=== PATIENT | male | born 1940 | race Caucasian/White ===

== ENCOUNTER 2018-11-08 09:42 | Inpatient (IN) | payer OTHER ==
[2018-11-08 10:13] LABS: ADD MAN DIFF? NO
[2018-11-08 10:14] LABS: BASOPHILS % 0.5 % (0.0-2.0); EOSINOPHILS # 0.1 10^3/ul (0.0-0.5); EOSINOPHILS % 0.9 % (0.0-7.0); HEMATOCRIT 36.2 % (42.0-52.0); HEMOGLOBIN 12.2 g/dl (14.0-18.0); LYMPHOCYTES # 2.4 10^3/ul (0.8-2.9); MEAN CORPUSCULAR HEMOGLOBIN 30.3 pg (29.0-33.0); MEAN CORPUSCULAR HGB CONC 33.7 g/dl (32.0-37.0); MEAN PLATELET VOLUME 10.7 fl (7.4-10.4); MONOCYTE # 0.7 10^3/ul (0.3-0.9); MONOCYTES % 7.7 % (0.0-11.0); NEUTROPHIL # 5.6 10^3/ul (1.6-7.5); NEUTROPHILS % 63.3 % (39.0-77.0); PLATELET COUNT 179 10^3/UL (140-415); RED BLOOD COUNT 4.02 10^6/ul (4.70-6.10); RED CELL DISTRIBUTION WIDTH 13.6 % (11.5-14.5)
[2018-11-08 10:14] LABS: WHITE BLOOD COUNT 8.8 10^3/ul (4.8-10.8)
[2018-11-08] MEDS: IPRATROPIUM (NEB) 0.5 MG/2.5 ML AMP NEB (10:14)
[2018-11-08] MEDS: ALBUTEROL 0.083% (NEB) 2.5 MG/3 ML AMP NEB (10:14)
[2018-11-08 10:34] LABS: ALANINE AMINOTRANSFERASE 14 IU/L (13-69); ALKALINE PHOSPHATASE 51 IU/L (42-121); ANION GAP 13 (5-13); ASPARTATE AMINO TRANSFERASE 15 IU/L (15-46); BILIRUBIN,INDIRECT 0.2 mg/dl (0-1.1); BILIRUBIN,TOTAL 0.2 mg/dl (0.2-1.3); BLOOD UREA NITROGEN 14 mg/dl (7-20); CALCIUM 8.3 mg/dl (8.4-10.2); CARBON DIOXIDE 28 mmol/L (21-31); CHLORIDE 101 mmol/L (97-110); CREATININE 1.05 mg/dl (0.61-1.24); GLUCOSE 188 mg/dl (70-220); LIPASE 26 U/L (23-300); POTASSIUM 3.5 mmol/L (3.5-5.1); SODIUM 142 mmol/L (135-144)
[2018-11-08 10:35] LABS: ALBUMIN 3.3 g/dl (3.3-4.9); ALBUMIN/GLOBULIN RATIO 1.13; CREATINE KINASE 22 IU/L (23-200); TOTAL PROTEIN 6.2 g/dl (6.1-8.1)
[2018-11-08 10:47] LABS: B-TYPE NATRIURETIC PEPTIDE 1260 PG/ML (0-450); CK INDEX 2.1; CK-MB 0.47 ng/ml (0.0-2.4); TROPONIN-I 0.013 ng/ml (0.000-0.120)
[2018-11-08] MEDS: ONDANSETRON 4 MG INJ IV (11:04)
[2018-11-08] MEDS: GLUCAGON 1 MG INJ IV (11:11)
[2018-11-08 11:14] LABS: INR 0.99; PARTIAL THROMBOPLASTIN TIME 31.9 Sec (23.0-35.0); PROTIME 13.2 Sec (11.9-14.9)
[2018-11-08] MEDS ORDERED: NICARDipine HCL 30 MG CAPSULE (11:34)
[2018-11-08] MEDS: NICARDipine HCL 30 MG CAPSULE PO (11:50)
[2018-11-08] MEDS ORDERED: ACETAMINOPHEN 325 MG TAB PO ×2 (14:30→15:30)
[2018-11-08] MEDS ORDERED: ONDANSETRON 4 MG INJ IV (14:30)
[2018-11-08] MEDS ORDERED: NACL 0.9% 3 ML SYG IV (15:30)
[2018-11-08] MEDS ORDERED: GLUCOSE GEL 15 GRAM TUBE PO ×2 (16:30)
[2018-11-08] MEDS ORDERED: GLUCOSE GEL 15 GRAM TUBE BUCCAL (16:30)
[2018-11-08] MEDS ORDERED: DEXTROSE 50% 50 ML SYRINGE IV ×2 (16:30)
[2018-11-08] MEDS ORDERED: GLUCAGON 1 MG INJ IM (16:30)
[2018-11-08 16:57] LABS: TROPONIN-I < 0.012 ng/ml (0.000-0.120)
[2018-11-08] MEDS: INSULIN ASPART [NOVOLOG] 3 ML PEN SC ×2 (18:00→21:00)
[2018-11-08] MEDS: hydrALAzine 20 MG INJ IV (21:03)
[2018-11-09] MEDS: ACCU-CHEK XX (02:00)
[2018-11-09 05:25] LABS: ADD MAN DIFF? NO
[2018-11-09 05:30] LABS: WHITE BLOOD COUNT 8.4 10^3/ul (4.8-10.8)
[2018-11-09 05:30] LABS: BASOPHILS % 0.5 % (0.0-2.0); EOSINOPHILS # 0.1 10^3/ul (0.0-0.5); EOSINOPHILS % 1.1 % (0.0-7.0); HEMATOCRIT 37.2 % (42.0-52.0); HEMOGLOBIN 12.5 g/dl (14.0-18.0); LYMPHOCYTES # 2.1 10^3/ul (0.8-2.9); LYMPHOCYTES % 24.7 % (15.0-51.0); MEAN CORPUSCULAR HEMOGLOBIN 30.3 pg (29.0-33.0); MEAN CORPUSCULAR HGB CONC 33.6 g/dl (32.0-37.0); MEAN CORPUSCULAR VOLUME 90.1 fl (82.0-101.0); MEAN PLATELET VOLUME 11.2 fl (7.4-10.4); MONOCYTE # 0.7 10^3/ul (0.3-0.9); MONOCYTES % 7.8 % (0.0-11.0); NEUTROPHIL # 5.5 10^3/ul (1.6-7.5); NEUTROPHILS % 65.3 % (39.0-77.0); PLATELET COUNT 186 10^3/UL (140-415); RED BLOOD COUNT 4.13 10^6/ul (4.70-6.10)
[2018-11-09 06:01] LABS: ALANINE AMINOTRANSFERASE 16 IU/L (13-69); ALBUMIN/GLOBULIN RATIO 1.11; ALKALINE PHOSPHATASE 49 IU/L (42-121); ANION GAP 8 (5-13); ASPARTATE AMINO TRANSFERASE 12 IU/L (15-46); BILIRUBIN,INDIRECT 0.2 mg/dl (0-1.1); BILIRUBIN,TOTAL 0.2 mg/dl (0.2-1.3); BLOOD UREA NITROGEN 15 mg/dl (7-20); CALCIUM 8.7 mg/dl (8.4-10.2); CARBON DIOXIDE 31 mmol/L (21-31); CHLORIDE 106 mmol/L (97-110); CREATININE 1.06 mg/dl (0.61-1.24); GLUCOSE 119 mg/dl (70-220); MAGNESIUM 2.2 mg/dl (1.7-2.5); PHOSPHORUS 4.6 mg/dl (2.5-4.9); POTASSIUM 3.8 mmol/L (3.5-5.1); SODIUM 145 mmol/L (135-144); TOTAL PROTEIN 5.7 g/dl (6.1-8.1)
[2018-11-09 06:07] LABS: TROPONIN-I 0.021 ng/ml (0.000-0.120)
[2018-11-09] MEDS: INSULIN ASPART [NOVOLOG] 3 ML PEN SC ×4 (07:57→21:00)
[2018-11-09] MEDS: CLOPIDOGREL 75 MG TAB PO (08:49)
[2018-11-09] MEDS: HYDROCHLOROTHIAZIDE 12.5 MG CAP PO (08:49)
[2018-11-09] MEDS: BENAZEPRIL 40 MG TAB PO (08:49)
[2018-11-09 10:22] LABS: HEMOGLOBIN A1C 7.8 % (0-5.9)
[2018-11-09 17:07] LABS: FREE THYROXINE INDEX (Calc) 1.64 ug/ml (0.65-3.89); T3 UPTAKE 33.4 % (23.5-40.5); T4 (THYROXINE) 4.9 ug/dl (5.5-11.0)
[2018-11-10] MEDS: ACCU-CHEK XX (01:49)
[2018-11-10] MEDS: INSULIN ASPART [NOVOLOG] 3 ML PEN SC ×4 (08:00→20:43)
[2018-11-10] MEDS: CLOPIDOGREL 75 MG TAB PO (08:20)
[2018-11-10] MEDS: BENAZEPRIL 40 MG TAB PO (08:21)
[2018-11-10] MEDS: HYDROCHLOROTHIAZIDE 12.5 MG CAP PO (08:21)
[2018-11-10] MEDS: hydrALAzine 20 MG INJ IV (16:10)
[2018-11-10] MEDS: AMLODIPINE 5 MG TAB PO (17:16)
[2018-11-10] MEDS: ENALAPRILAT 1.25 MG INJ IV (19:06)
[2018-11-11] MEDS: ACCU-CHEK XX (02:00)
[2018-11-11] MEDS: hydrALAzine 20 MG INJ IV ×4 (06:21→17:22)
[2018-11-11] MEDS: INSULIN ASPART [NOVOLOG] 3 ML PEN SC ×3 (08:00→17:24)
[2018-11-11] MEDS: CLOPIDOGREL 75 MG TAB PO (08:05)
[2018-11-11] MEDS: AMLODIPINE 5 MG TAB PO (08:05)
[2018-11-11] MEDS: HYDROCHLOROTHIAZIDE 12.5 MG CAP PO (08:05)
[2018-11-11] MEDS: BENAZEPRIL 40 MG TAB PO (08:09)
[2018-11-11] MEDS: ENALAPRILAT 1.25 MG INJ IV ×2 (15:38→16:20)
== END 2018-11-11 18:00 | disposition home health service (06) | DRG 310 ==
LOC: E/R 09:42 → 6WM 14:29
DX: R00.1 Bradycardia, unspecified (principal); I25.10 Atherosclerotic heart disease of native coronary artery without angina pectoris; I10 Essential (primary) hypertension; R47.81 Slurred speech; E11.9 Type 2 diabetes mellitus without complications; R13.10 Dysphagia, unspecified
CPT/HCPCS: 70450; 70551; 71045; 80053; 82550; 82553; 82962; 83036; 83690; 83735; 83880; 84100; 84436; 84479; 84484; 85025; 85610; 85730; 90686; 92610; 93005; 93306; 94664; 96374; 96375; 97162; 97165; 99285-25; G0378